=== PATIENT | male | born 1955 | race African-American/Black ===

== ENCOUNTER 2018-11-04 19:24 | Emergency (ER) | payer OTHER ==
[2018-11-04 19:45] VITALS: RESP 18
[2018-11-04 21:27] LABS: ALT 24 U/L (21-72); AST 22 U/L (17-59); Albumin 3.1 g/dL (3.5-5.0); Alkaline Phosphatase 67 U/L (38-126); Anion Gap 5 mmol/L; Blood Urea Nitrogen 18 mg/dL (9-20); Calcium 9.1 mg/dL (8.4-10.2); Carbon Dioxide 28 mmol/L (22-30); Chloride 107 mmol/L (98-107); Glucose 94 mg/dL (74-99); Potassium 4.2 mmol/L (3.5-5.1); Sodium 140 mmol/L (137-145); Total Bilirubin 0.3 mg/dL (0.2-1.3); Total Protein 6.1 g/dL (6.3-8.2)
[2018-11-04 21:37] LABS: HCT 43.5 % (39.0-53.0); HGB 14.2 gm/dL (13.0-17.5); MCH 30.4 pg (25.0-35.0); MCHC 32.7 g/dL (31.0-37.0); MCV 92.8 fL (80.0-100.0); Mean Platelet Volume 8.1; Platelet Count 352 k/uL (150-450); RBC 4.68 m/uL (4.30-5.90); RDW 14.6 % (11.5-15.5); WBC 3.9 k/uL (3.8-10.6)
--- NOTE | 2018-11-04 21:51 | XR ---
EXAMINATION: XR chest 2V DATE AND TIME: 11/04/2018 9:19 PM CLINICAL INDICATION: PHH; Pain TECHNIQUE: Departmental protocol COMPARISON: None FINDINGS: The lungs are clear. The pleural spaces are negative. The cardiac silhouette is mild-moderately enlarged. The thoracic aorta is tortuous. The skeletal structures and soft tissues are negative for acute findings. Levoscoliosis, apex at lowe r thoracic spine, is noted. IMPRESSION: NO ACUTE PROCESS.
--- NOTE | 2018-11-04 22:03 | ED ---
Extremity Problem HPI - General Chief complaint: Extremity Problem,Nontraumatic Stated complaint: Swollen Ankle Bilateral Time Seen by Provider: 11/04/18 20:24 Source: patient Mode of arrival: ambulatory Limitations: no limitations - History of Present Illness Initial comments: 63-year-old male patient presents to the emergency department today for evalu ation of bilateral lower extremity swelling. Patient states he's had increased swelling to the lower legs and ankles for the last week. Patient states the legs are starting to feel tight. He denies any shortness of breath, chest pain, orthopnea or PND. Denies any redness to the legs or calf pain. Denies any recent travel. Denies any history of DVT. Denies any cough or congestion. Denies any fever or chills. Patient denies any recent rash, abdominal pain, nausea, vomiting, diarrhea, constipation, back pain, numbness, tingling, dizziness, weakness, hematuria, dysuria, urinary urgency, urinary frequency, headache, visual changes, or any other complaints. - Related Data Home Medications Medication Instructions Recorded Confirmed Acetaminophen Tab [Tylenol Tab] 650 mg PO Q4H PRN 11/04/18 11/04/18 Carvedilol [Coreg] 6.25 mg PO BID@0600,1730 11/04/18 11/04/18 Chlorpheniramine Maleate 4 mg PO Q4H PRN 11/04/18 11/04/18 [Chlor-Trimeton] Ibuprofen [Motrin] 600 mg PO Q6H PRN 11/04/18 11/04/18 Minoxidil [Loniten] 2.5 mg PO BID@0600,172911/04/18 11/04/18 Multivitamins, Thera [Multivitamin 1 tab PO DAILY 11/04/18 11/04/18 (formulary)] Spironolactone [Aldactone] 25 mg PO BID@0600,1730 11/04/18 11/04/18 Tab-A-Ambrocio 1 tab PO DAILY@0600 11/04/18 11/04/18 Thiamine [Vitamin B-1] 100 mg PO DAILY 11/04/18 11/04/18 cloNIDine HCL [Catapres] 0.1 - 0.3 mg PO DAILY PRN 11/04/18 11/04/18 guaiFENesin [guaiFENesin Oral 200 mg PO Q4H PRN 11/04/18 11/04/18 Solution] hydrALAZINE HCL [Apresoline] 25 mg PO TID@0600,1500,2200 11/04/18 11/04/18 traZODone HCL 50 - 150 mg PO HS PRN 11/04/18 11/04/18 Allergies Allergy/AdvReac Type Severity Reaction Status Date / Time No Known Allergies Allergy Verified 11/04/18 20:32 Review of Systems ROS Statement: Those systems with pertinent positive or pertinent negative responses have been documented in the HPI. ROS Other: All systems not noted in ROS Statement are negative. Past Medical History Past Medical History: CVA/TIA, Hypertension History of Any Multi-Drug Resistant Organisms: None Reported Past Psychological History: No Psychological Hx Reported Smoking Status: Current every day smoker Past Alcohol Use History: None Reported Past Drug Use History: Cocaine General Exam Limitations: no limitations General appearance: alert, in no apparent distress, other (Physical well- developed, well-nourished adult male patient in no acute distress. Vital signs upon presentation are temperature 98.4F, pulse 55, respirations 18, blood pressure 161/101, pulse ox 100% on room air.) Eye exam: Present: normal appearance, PERRL, EOMI. Absent: scleral icterus, conjunctival injection, periorbital swelling ENT exam: Present: normal exam, normal oropharynx, mucous membranes moist Respiratory exam: Present: normal lung sounds bilaterally. Absent: respiratory distress, wheezes, rales, rhonchi, stridor Cardiovascular Exam: Present: regular rate, normal rhythm, normal heart sounds. Absent: systolic murmur, diastolic murmur, rubs, gallop, clicks Extremities exam: Present: full ROM, normal capillary refill, other (Plus luca ing edema to the lower legs and ankles. Slightly worse on the right than the left. No skin erythema, rash, or discoloration. Skin is warm and dry. Cap refills is in 3 seconds. Pedal posttibial pulses 2+ and equal bilaterally.). Absent: normal inspection, tenderness, pedal edema, joint swelling, calf tenderness Neurological exam: Present: alert, oriented X3, CN II-XII intact Psychiatric exam: Present: normal affect, normal mood Skin exam: Present: warm, dry, intact, normal color. Absent: rash Course Vital Signs 11/04/18 11/04/18 11/04/18 19:41 22:27 23:35 Temperature 98.4 F 98.0 F Pulse Rate 55 L 52 L 55 L Respiratory 18 18 18 Rate Blood Pressure 161/101 145/98 172/98 O2 Sat by Pulse 100 94 L 94 L Oximetry Medical Decision Making - Medical Decision Making 63-year-old male patient presents emergency department today for bilateral lower extremity edema. Physical examination did reveal lower extremity edema 1+ pitting worse on the right. Neurovascular status was intact. Patient te nderness or redness. Labs reviewed and were unremarkable. BNP negative. Chest x-ray shows no heart failure. Did discuss findings and results with the patient. He will be given a pack of [place] Hose for compression and instructed to keep legs elevated as much as possible. Is instructed to follow-up with his primary care physician for recheck in 1-2 days. Return parameters were discussed in detail. He verbalizes understanding and agrees with this plan. - Lab Data Result diagrams: 11/04/18 21:05 11/04/18 21:05 Lab Results 11/04/18 11/04/18 11/04/18 Range/Units 21:05 21:05 21:05 WBC 3.9 (3.8-10.6) k/uL RBC 4.68 (4.30-5.90) m/uL Hgb 14.2 (13.0-17.5) gm/dL Hct 43.5 (39.0-53.0) % MCV 92.8 (80.0-100.0) fL MCH 30.4 (25.0-35.0) pg MCHC 32.7 (31.0-37.0) g/dL RDW 14.6 (11.5-15.5) % Plt Count 352 (150-450) k/uL Sodium 140 (137-145) mmol/L Potassium 4.2 (3.5-5.1) mmol/L Chloride 107 (98-107) mmol/L Carbon Dioxide 28 (22-30) mmol/L Anion Gap 5 mmol/L BUN 18 (9-20) mg/dL Creatinine 0.71 (0.66-1.25) mg/dL Est GFR (CKD-EPI)AfAm >90 (>60 ml/min/1.73 sqM) Est GFR (CKD-EPI)NonAf >90 (>60 ml/min/1.73 sqM) Glucose 94 (74-99) mg/dL Calcium 9.1 (8.4-10.2) mg/dL Total Bilirubin 0.3 (0.2-1.3) mg/dL AST 22 (17-59) U/L ALT 24 (21-72) U/L Alkaline Phosphatase 67 (38-126) U/L NT-Pro-B Natriuret Pep 295 pg/mL Total Protein 6.1 L (6.3-8.2) g/dL Albumin 3.1 L (3.5-5.0) g/dL Urine Color Urine Appearance (Clear) Urine pH (5.0-8.0) Ur Specific [place] (1.001-1.035) Urine Protein (Negative) Urine Glucose (UA) (Negative) Urine Ketones (Negative) Urine Blood (Negative) Urine Nitrite (Negative) Urine Bilirubin (Negative) Urine Urobilinogen (<2.0) mg/dL Ur Leukocyte Esterase (Negative) 11/04/18 Range/Units 22:24 WBC (3.8-10.6) k/uL RBC (4.30-5.90) m/uL Hgb (13.0-17.5) gm/dL Hct (39.0-53.0) % MCV (80.0-100.0) fL MCH (25.0-35.0) pg MCHC (31.0-37.0) g/dL RDW (11.5-15.5) % Plt Count (150-450) k/uL Sodium (137-145) mmol/L Potassium (3.5-5.1) mmol/L Chloride (98-107) mmol/L Carbon Dioxide (22-30) mmol/L Anion Gap mmol/L BUN (9-20) mg/dL Creatinine (0.66-1.25) mg/dL Est GFR (CKD-EPI)AfAm (>60 ml/min/1.73 sqM) Est GFR (CKD-EPI)NonAf (>60 ml/min/1.73 sqM) Glucose (74-99) mg/dL Calcium (8.4-10.2) mg/dL Total Bilirubin (0.2-1.3) mg/dL AST (17-59) U/L ALT (21-72) U/L Alkaline Phosphatase (38-126) U/L NT-Pro-B Natriuret Pep pg/mL Total Protein (6.3-8.2) g/dL Albumin (3.5-5.0) g/dL Urine Color Light Yellow Urine Appearance Clear (Clear) Urine pH 6.5 (5.0-8.0) Ur Specific [place] 1.005 (1.001-1.035) Urine Protein Negative (Negative) Urine Glucose (UA) Negative (Negative) Urine Ketones Negative (Negative) Urine Blood Negative (Negative) Urine Nitrite Negative (Negative) Urine Bilirubin Negative (Negative) Urine Urobilinogen <2.0 (<2.0) mg/dL Ur Leukocyte Esterase Negative (Negative) - Radiology Data Radiology results: report reviewed, image reviewed Two-view x-ray of the chest is obtained. Report was reviewed in its entirety. Impression by Dr. Fernanda Valero shows no acute process. Disposition Clinical Impression: Lower extremity edema Disposition: HOME SELF-CARE Condition: Good Instructions (If sedation given, give patient instructions): Leg Edema (ED) Additional Instructions: Wear compression stockings during the day, take these off to sleep. Keep legs elevated as much as possible. Follow-up with your primary care physician for recheck in 1-2 days. Return to the emergency department immediately for any new, worsening, or concerning symptoms. Is patient prescribed a controlled substance at d/c from ED?: No Referrals: Nonstaff,Physician [Primary Care Provider] - 1-2 days Time of Disposition: 23:02
[2018-11-04 22:41] LABS: Appearance,Urine Clear (Clear); Bilirubin,Urine Negative (Negative); Blood,Urine Negative (Negative); Color,Urine Light Yellow; Glucose,Urine (UA) Negative (Negative); Ketones,Urine Negative (Negative); Leukocyte Esterase,Urine Negative (Negative); Nitrite,Urine Negative (Negative); PH, Urine 6.5 (5.0-8.0); Protein,Urine Negative (Negative); Specific Gravity,Urine 1.005 (1.001-1.035); Urobilinogen,Urine <2.0 mg/dL (<2.0)
[2018-11-04 23:41] VITALS: BP 172/98; PULSE 55; TEMP 98
[2018-11-05 00:55] LABS: Nucleated Red Blood Cells 0 /100 WBC (0-0); Total Cells Counted 100
[2018-11-05 01:00] LABS: Target Cells Present
[2018-11-05 01:01] LABS: Poikilocytosis (M) Present
[2018-11-05 08:36] LABS: Eosinophils # (M) 0.08 k/uL (0-0.7); Lymphocytes # (M) 1.87 k/uL (1.0-4.8); Monocytes # (M) 0.66 k/uL (0-1.0); Neutrophils # (M) 1.29 k/uL (1.3-7.7); Neutrophils % (M) 33 %
== END 2018-11-04 23:42 | disposition home or self-care (01) ==
LOC: EC 19:24
DX: R60.0 Localized edema (principal); I10 Essential (primary) hypertension; F17.200 Nicotine dependence, unspecified, uncomplicated; Z86.73 Personal history of transient ischemic attack (TIA), and cerebral infarction without residual deficits; Z79.899 Other long term (current) drug therapy
CPT/HCPCS: 36415; 71046; 80053; 81003; 83880; 85025; 99283